=== PATIENT | female | born 1935 | race Caucasian/White ===

== ENCOUNTER 2024-01-10 12:19 | Emergency (ER) | payer MEDICARE, OTHER, SELFPAY ==
[2024-01-10 12:22] VITALS: BP 160/75
--- NOTE | 2024-01-10 12:46 | ED.MUSCINJ ---
HPI-Injury
General
Chief Complaint: Fall
Source: patient and family
Exam Limitations: none
Time Seen by Provider: 01/10/24 12:30
Nursing documentation reviewed up to this point in time: agreed with
History of Present Illness-Injury
Is this injury a work related problem?: No
Is pt an associate of [facility]?: No
Initial Injury comments:
88-year-old female presents emerged part complaining of left hip pain after falling on her left side on cement. She lost her balance. She denies any other injury. Several years ago she had bilateral hip replacements done at [facility].
Past History
Past History
ED Past Medical History: None
ED Past Surgical History: Orthopedic (Bilateral hip replacements at [facility] by Dr Walker) and Other (Cataracts)
Social History
Tobacco: Non-smoker
Alcohol: None
Drug: None
Living: with family
Review of Systems
Review of Systems
Allergies reviewed?: Yes
All Other Systems: Not applicable
Constitutional: Reports no symptoms
EENT: Reports no symptoms
Respiratory: Reports no symptoms
Cardiac: Reports no symptoms
ABD/GI: Reports no symptoms
: Reports no symptoms
Musculoskeletal: Reports joint pain
Skin: Reports no symptoms
Neurological: Reports no symptoms
Endocrine: Reports no symptoms
Hematologic/Lymphatic: Reports no symptoms
Psychiatric: Reports no symptoms
Phy Exam
Physical Exam
Physical Exam:
Physical Exam
General: no apparent distress, not acutely ill
Neck: supple. no meningeal signs. normal posterior pharynx
Heart: s1/s2 regular rate and rhythm, no murmur. equal radial
pulses.
HEENT: Pupils equal round reactive to light, EOMI
Lungs: no acute respiratory distress. clear bilaterally
Abdomen: normal bowel sounds. not tender. no CVAT
Neuro: alert and oriented. no focal neurological deficits cranial nerves II through XII intact
Skin: no rash
Psychiatric: well kept. interactive and cooperative
Extremities: no edema. no calf tenderness. negative homans. good distal pulses, limited range of motion left hip, tender to palpation at proximal left femur
Injury Course
Orders/Labs/Results
Orders:
Orders
01/10/24 12:43
IV Insert/Care/Rem.- Treatment PRN
Morphine Sulfate 4 mg IV NOW STA
Ondansetron Injectable [Zofran] 4 mg IV NOW STA
Hip, Left 2-3 Views [CR Hip - LT w/wo Pel 2-3 Vw*] Urgent
Comment:
Reason For Exam: fall, left hip pain
Include a pelvis x-ray?: Yes
01/10/24 14:32
HYDROmorphone [Dilaudid] 0.5 mg IV NOW STA
01/10/24 14:51
Case Management Consult ONCE
Case Management Consult: [employer]
Requested By:: PHYSICIAN
Comment: periprosthetic fracture, limited weight bearing, wants to go home, but may need wc,walker..
MDM/Problems Addressed
Differential Diagnosis Includes:
Hip fracture, periprosthetic fracture
MDM/Problems Addressed:
88-year-old female with left proximal periprosthetic femur fracture. Discussed with Dr. Nielsen, who recommends limited weightbearing as tolerated and follow-up in office. No indication for surgery
*Radiology
Radiology exam reviewed: preliminary read by ED provider (Left hip x-ray, periprosthetic proximal femur fracture)
*Pulse Oximetry
Patient hypoxic: no
*EKG
Interpreted by ED Provider?: NA
*Ed Transporter Interpretation
Rate: Ed Transporter- N/A
*Critical Care Note
Total Time (30-74mins, 75-104mins- exclusive of procedures): Not Applicable
Data Reviewed
Further Testing Considered But Not Given:
CT pelvis not indicated
Patient Management
Social determinants of health affecting care: Living situation
Discussion with other providers: Environmental Health Officer (orthopedics Dr. Nielsen) and Other (case management Katharine Eubanks assisted in arranging wheelchair and walker)
Escalation/DeEscalation of care consider admission/obs:
admit not indicated
Update Note
Update Note:
Wheelchair prescribed for patient. Due to periprosthetic fracture, patient requires assistance in transportation and wheelchair to complete her daily activities. She cannot self propel due to the pain.
ED Attending Note
-
Portions of this chart may have been created with voice recognition software.� Occasional wrong word or��sound alike� substitutions may have occurred due to the inherent limitations of voice recognition software.
Discharge Plan
Departure
Patient Disposition: Home (Routine Discharge)
Date of Disposition: 01/10/24
Time of Disposition: 15:52
Patient with high blood pressure during this ER visit?: Yes
Condition: Good
Discharge Problem:
Periprosthetic fracture around internal prosthetic left hip joint
Instructions: Hip fracture in adults - Discharge instructions, BLOOD PRESSURE
Prescriptions:
New
hydrocodone-acetaminophen 5-325 mg tablet
1 tab PO Q4H PRN (Reason: Pain) Qty: 14 0RF
Referrals:
Edward Nielsen MD [Active] - Call in 1-3 days for appt
Sumit Wilkerson DO [Family Provider] -
Interventions
Interventions:
*General Assessment Last Done: 01/10/24 12:22
ED- Fall Risk Assessment Last Done: 01/10/24 12:56
*ED COVID-19 Vaccine History Last Done: 01/10/24 12:24
*Nursing Disposition Last Done: 01/10/24 16:59
ED-Musculoskeletal Assessment Last Done: 01/10/24 12:56
ED- Neurological Assessment Last Done: 01/10/24 12:56
ED-Skin Assessment Last Done: 01/10/24 12:56
Discharge Date and Time
Discharge Date/Time: 01/10/24 17:00
Print Language: PANAMANIAN
[2024-01-10] MEDS: ZOFRAN 4 MG IV (12:51)
[2024-01-10] MEDS: MORPHINE SULFATE 4 MG IV (12:52)
[2024-01-10 12:56] VITALS: BMI 22.7
[2024-01-10] MEDS: DILAUDID 0.5 MG IV (14:39)
--- NOTE | 2024-01-10 16:23 | CM ---
CM was consulted for wheelchair, and walker. CM spoke with bedside RN. They will issue a walker to patient. CM updated family that wheelchair cannot be delivered until tomorrow. CM called [employer], [facility] and [facility] all
cannot deliver until tomorrow.
Family and ED physician updated.
Family was given contact for [facility]. CM sent script, clinical and face sheet to [facility].
CM will sent referral via [facility] for [facility].
[2024-01-10 16:59] VITALS: BP 158/72
--- NOTE | 2024-01-11 09:14 | CM ---
Addendum entered by Kylie Sheldon RN 01/11/24 12:57:
Spoke with daughter; [facility] delivered lightwt w/c and she was pleased. She spoke with Dr Macias and was advised to limit ambulation for now and no additional pain meds were ordered. Daughter ordered commode and shower chair on [employer].
Addendum entered by Kylie Sheldon RN 01/11/24 10:17:
Dr Macias notified pain having a lot of pain with movement. He indicated he would order Percocet and would call the patient/daughter.
Addendum entered by Kylie Sheldon RN 01/11/24 10:06:
Spoke with [facility] [employer]; he does not have an order for a w/c and will therefore not be delivering it this weekend.
Spoke with [facility]; request faxed for lightweight w/c. They will deliver to the home today.
Spoke with [facility]ER[facility] [employer] information and data architect analyst; they will not be able to see the patient until 01/12.
Spoke with Clarisa, daughter; she is aware that [facility] [employer] will not be delivering and that [facility] will be delivering light wt w/c today. Daughter inquired when [facility] would be seeing the patient as she was told 1-2 days. Informed her that Saturday was
the soonest she could be seen. Her mother has been able to get up to the bathroom with the RW, however is having a lot of pain despite the pain meds she was prescribed. She is aware to call the doctor if pain is unmanageable.
Original Note:
Patient seen in ED 01/09 for Dx Periprosthetic fracture around internal prosthetic left hip joint. Patient discharged to home 01/10/24.
Request from ED DEAN [facility] to follow up and confirm patient received w/c today from [facility] [employer].
Spoke with patient's daughter Jennie; the w/c has not been delivered to the home yet. She will call CM back once delivered today.
Phone call to answering service, [employer] (ph [phone]); left message requesting callback re; status of delivery.
Plan confirm status of delivery of w/c to patient home.
--- NOTE | 2024-01-12 18:23 | W.PN.UPDATE ---
Update Note
Progress Note Update
Spoke to pts granddaughter who stated she would relay the message
I reviewed the xrays and actually came into the hospital to see her sat AM 01/10 because I thought she was admitted
However, she went home from the ER per her choice
I recommended WB with walker to the ER staff and F/U with either her original [facility] surgeon or Dr. Mohit Guevara
Her granddaughter said she would relay the message
I stated if any problems or concerns whatsoever that she should come back to [facility] for evaluation
GGMD
== END 2024-01-10 17:00 | disposition home or self-care (01) ==
LOC: EMR 12:19
PROVIDERS: EMERGENCY PHYSICIAN Emergency Medicine; FAMILY PHYSICIAN Family Medicine
DX: M97.02XA Periprosthetic fracture around internal prosthetic left hip joint, initial encounter (principal); W19.XXXA Unspecified fall, initial encounter; Z96.643 Presence of artificial hip joint, bilateral
CPT/HCPCS: 99283; 96374; 96375; 73502